=== PATIENT | male | born 1995 | race Two or more races ===

== ENCOUNTER 2019-11-15 08:13 | Emergency (ER) | payer OTHER, SELFPAY ==
[~2019-11-15] VITALS: Ht 177.8 cm; Wt 72.7 kg
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
--- NOTE | 2019-11-15 09:10 | NUR ---
PT TO RM 1 AT THIS TIME, FOR SECURE RM. REPORT TO EMILIA PACHECO
[2019-11-15 09:13] LABS: BASOPHILS # (AUTO) 0.04 x10^3/uL (0-0.1); BASOPHILS % (AUTO) 1 % (0-1); EOSINOPHILS # (AUTO) 0.03 x10^3/uL (0-0.4); EOSINOPHILS % (AUTO) 1 % (1-7); LYMPHOCYTES # (AUTO) 1.81 x10^3/uL (1-3.4); LYMPHOCYTES % (AUTO) 30 % (22-44); MD NO; MEAN CORPUSCULAR HEMOGLOBIN 32.7 pg (27.5-34.5); MEAN CORPUSCULAR HGB CONC 33.9 g/dL (33.2-36.2); MEAN CORPUSCULAR VOLUME 96.4 fL (81-97); MEAN PLATELET VOLUME 7.9 fL (7.4-10.4); MONOCYTES # (AUTO) 0.42 x10^3/uL (0.2-0.8); MONOCYTES % (AUTO) 7 % (2-9); NEUTROPHILS # (AUTO) 3.75 x10^3/uL (1.8-6.8); NEUTROPHILS % (AUTO) 62 % (42-75); PLATELET COUNT 255 x10^3/uL (130-400); RED BLOOD COUNT 5.61 x10^6/uL (4.38-5.82); RED CELL DISTRIBUTION WIDTH 12.9 % (9.4-14.8)
[2019-11-15 09:25] LABS: ALBUMIN 4.5 g/dL (3.4-5.0); ANION GAP 8 mmol/L (5-15); CALCIUM 8.9 mg/dL (8.5-10.1); CHLORIDE 112 mmol/L (98-107); CREATININE 0.96 mg/dL (0.7-1.3)
[2019-11-15 09:29] LABS: SALICYLATE LEVEL < 1.7 mg/dL (2.8-20.0)
[2019-11-15 09:38] LABS: AMPHETAMINE SCREEN, URINE Negative (Negative); BARBITURATE SCREEN, URINE Negative (Negative); BENZODIAZEPINE SCREEN, URINE Negative (Negative); CANNABINOID SCREEN, URINE Negative (Negative); COCAINE SCREEN, URINE Positive (Negative); METHADONE SCREEN, URINE Negative (Negative); OPIATE SCREEN, URINE Negative (Negative)
--- NOTE | 2019-11-15 10:30 | NUR ---
PT SLEEPING, REPORT FROM ZAYNAB SALINAS
--- NOTE | 2019-11-15 11:40 | NUR ---
PT NOT COOPERATING W BREATHLYZER. NOT FOLLOWING DIRECTIONS.
[2019-11-15 13:06] VITALS: BP 160/91
--- NOTE | 2019-11-15 13:08 | NUR ---
ASSUMED CARE OF PT FOR DC. PT REFUSED TAXI RIDE STATING HE WILL GET RIDE FROM HIS SISTER. PT WALKED TO DC DESK WITH STEADY GAIT AND NO ASSIST.
== END 2019-11-15 13:08 | disposition home or self-care (01) ==
LOC: ED 09:21
DX: S62.316A Displaced fracture of base of fifth metacarpal bone, right hand, initial encounter for closed fracture (principal); S62.314A Displaced fracture of base of fourth metacarpal bone, right hand, initial encounter for closed fracture; R45.851 Suicidal ideations; F10.229 Alcohol dependence with intoxication, unspecified; F32.9 Major depressive disorder, single episode, unspecified; W25.XXXA Contact with sharp glass, initial encounter; Y93.89 Activity, other specified; Y92.89 Other specified places as the place of occurrence of the external cause; Y99.8 Other external cause status; Y90.0 Blood alcohol level of less than 20 mg/100 ml
CPT/HCPCS: 36415; 80048; 80307; 82040; 85025; 99284